=== PATIENT | female | born 1965 | race Two or more races ===

== ENCOUNTER 2018-08-07 07:27 | Day surgery (SDC) | payer OTHER ==
[~2018-08-07 07:27] MED LIST: Bupivacaine HCl 0.5% PF (30 ml) Inj ONE; Iohexol 240 (50 ml) ONE; MethylPREDNISolone Depo 40 mg/ml Inj ONE
[2018-08-07] MEDS ORDERED: Propofol 10 mg/ml Inj (20 ML) ONE (08:30)
[2018-08-07 11:18] VITALS: RESP 16
[2018-08-07 11:19] VITALS: BP 135/72; PULSE 79; TEMP 97.9; O2SAT 97
--- NOTE | 2018-08-07 15:07 | RAD ---
Date of service: 08/07/2018 PROCEDURE: Intraoperative Fluoroscopy. HISTORY: LUMBAR RADICULOPATHY FINDINGS: Fluoroscopic assistance was provided for lumbar caudal epidural injection.. Please refer to the operative report from JUAN Bailey. Total fluoroscopic time (continuous mode) utilized during the procedure 14.1 seconds. Total exam DLP: 0.48 (mGy).
--- NOTE | 2018-08-08 06:00 | OP ---
PROCEDURE DATE: 08/07/2018 PREOPERATIVE DIAGNOSES: 1. Lumbar radiculopathy. 2. Lumbar herniated disk. POSTOPERATIVE DIAGNOSES: 1. Lumbar radiculopathy. 2. Lumbar herniated disk. PROCEDURE: Lumbar epidural steroid injection L4. X-RAY: [id number], fluoroscopy of the spine. ANESTHESIA: MAC/local. SURGEON: Billie Araiza MD COMPLICATIONS: None. BLOOD LOSS: 2 mL. BRIEF HISTORY AND INDICATIONS: The patient with lumbar radiculopathy, radiating down b/l lower extremities. The patient is here for a lumbar epidural steroid injection under fluoroscopic guidance. PROCEDURE IN DETAIL: The patient's chart was reviewed. Informed consent was obtained. The patient was brought back to the procedure room, placed in prone position. Routine monitors were applied. The patient prepped and draped in sterile fashion. The fluoroscopic view of the interlaminar space was taken in AP view. A 27-gauge needle was used to infiltrate the skin subcutaneously with lidocaine 1% at 2 mL. Subsequently, a 20-gauge epidural Tuohy needle was used to advance to the interlaminar space with loss of resistance technique. The needle position was confirmed by AP and lateral views. Omnipaque 180 dye, 1 mL was injected showing good epidurogram. Subsequently, Depo-Medrol 80 mg with 1 mg of 1% lidocaine preservative free and 2 mL of normal saline was injected with intermittent negative aspiration. No heme or CSF was aspirated throughout. No paresthesias were elicited throughout. The patient tolerated the procedure well. Vital signs remained stable. The patient reported reduction in pain post procedure. No sensory or motor deficits were noted. Trigger Point Injections: A 27-gauge needle was used to inject trigger point areas in paralumbar muscles, parathoracic muscles, and upper gluteal muscles. Needle was redirected to sciatic nerve branches. Total volume of 10 mL of 0.25% Marcaine. Intermittent aspiration was done throughout with no heme or CSF aspirated throughout. Patient tolerated procedure well. DISPOSITION: Patient was taken to the recovery room in stable condition. Patient was given instructions to follow up in two weeks and was discharged in stable condition. No events or complications. Billie Araiza MD
== END 2018-08-07 11:12 | disposition home or self-care (01) ==
LOC: C.SDS 07:27
PROVIDERS: ATTEND Anesthesiology Pain Medicine
DX: M51.16 Intervertebral disc disorders with radiculopathy, lumbar region (principal); M47.817 Spondylosis without myelopathy or radiculopathy, lumbosacral region
CPT/HCPCS: 20552; 62323; J1030; J2001; Q9966